=== PATIENT | male | born 1945 | race Caucasian/White ===

== ENCOUNTER → 2018-01-22 13:50 | Outpatient (CLI) | payer MEDICARE, OTHER ==
[2016-08-20 09:11] VITALS: BMI 30.6
[~2018-01-22 13:50] MED LIST: ATENOLOL25 MG PO; ATIVAN0.5 MG PO; BAYER CHEWABLE81 MG PO; CINNAMON500 MG PO; COLACE100 MG PO; COUMADIN5 MG PO; DIABETA5 MG PO; FISH OIL 1,0001 CA1 PO; FISH OIL 1,2001 CA1 PO; MS CONTIN15 MG PO; NIASPAN500 MG PO; PERCOCET 10/3251 TA1 PO; PERCOCET 5/3251 TA1 PO; PLAVIX75 MG PO; PRESERVISION AR1 CAP PO; PRILOSEC20 MG PO; ZEGERID 20 MG C1 CAP PO
== END | disposition home or self-care (01) ==
LOC: D.US 13:50
DX: I73.9 Peripheral vascular disease, unspecified (principal)

== ENCOUNTER → 2018-09-22 07:52 | Outpatient (CLI) | payer MEDICARE, OTHER ==
[2016-08-20 09:11] VITALS: BMI 30.6
--- NOTE | ~2018-09-22 | ST ---
PATIENT:GUS NAIK MEDICAL RECORD: [id number] SEX: M LOCATION:[facility] ORDER #: ADMISSION DATE: 09/22/18 AGE OF PATIENT: 73 REFERRING PHYSICIAN: INTERPRETING PHYSICIAN: MICHAEL RON MD DATE OF SERVICE: 09/22/2018 PROCEDURE: Nuclear stress test. INDICATION: Angina, shortness of breath, hypertension, and hyperlipidemia. He was exercised on standard Lexiscan protocol with 33 mCi of sestamibi injected at peak stress, 11 mCi were used previously for rest images. FINDINGS: Gated SPECT reveals a preserved ejection fraction at 64% with good wall motioning and thickening and brightening throughout all segments. SPECT imaging Cardiolite was used as myocardial perfusion agent. There are reversible changes inferiorly and laterally, this includes the basal, mid, apical inferior segments as well as apical lateral, mid lateral, and basal lateral segments. The degree of reversibility is moderate. The amount of myocardium involved is moderate to large. OVERALL IMPRESSION: This is an abnormal nuclear stress test, moderate reversible ischemia throughout a large area of myocardium inferiorly and laterally with a preserved ejection fraction. This does strongly suggest the presence of hemodynamically significant coronary artery disease with ongoing symptomatology. We will proceed with coronary angiography as followup study. TRANSINT:[id number] Voice Confirmation ID: [id number] DOCUMENT ID: [id number] MICHAEL RON MD at 1228 CC: [id number] DICTATION DATE: 09/23/18 1244 VARNISHER APPRENTICE: 09/24/18 0818 DEP CLI 09/22/18 [place] [id number]
== END | disposition home or self-care (01) ==
LOC: D.HCCARDIO 07:52
DX: I25.119 Atherosclerotic heart disease of native coronary artery with unspecified angina pectoris (principal)

== ENCOUNTER 2018-10-02 07:52 | Outpatient (CLI) | payer MEDICARE, OTHER ==
[~2018-10-02] VITALS: Ht 182.9 cm; Wt 95.5 kg
--- NOTE | ~2018-10-02 | HEMODYNAMI ---
PATIENT:GUS NAIK MEDICAL RECORD: [id number] : 45 LOCATION:[facility] ADMISSION DATE: 10/02/18 Generatedon:10/02/201810:47 Patient name: GUS NAIK Patient #: [id number] : 1945 Date of study: 10/02/2018 Page: Of Hemodynamic Procedure Report Patient Data Patient Demographics Procedure consent was obtained First Name: GUS Gender: Male Last Name: HEENA : 1945 [facility] Initial: KATELYN Age: 73 year(s) Patient #: [id number] Race: SSN: [id number] Additional ID: [id number] Contact details Address: [address] [place] [address] State: [place] City: [place] Zip code: [address] Past Medical History Allergies: No known allergies Admission Admission Data Admission Date: 10/02/2018 Admission Time: 7:52 Admit Source: Other Lab Results Lab Result Date: 10/02/2018 Lab Result Time: 0:00 Biochemistry Name Units Result Min Max BUN mg/dl 13 --(--*-)-- 7 18 Creatinine mg/dl 0.8 --(-*--)-- 0.6 1.3 CBC Name Units Result Min Max Hemoglobin g/dl 14.1 --(*---)-- 13.5 17.5 Procedure Procedure Types Cath Procedure Diagnostic Procedure LHC LH w/Coronaries FFR/IVUS Intra-Coronary IVUS Initial Procedure Description Procedure Date Procedure Date: 10/02/2018 Procedure Start Time: 10:34 Procedure End Time: 10:45 Procedure Staff Name Function Antonio Hammer MD Performing Physician Maya Martines RT Monitor Ben Whatley RN Nurse Chago Mace RT Scrub Procedure Data Cath Procedure Fluoroscopy Diagnostic fluoroscopy Total fluoroscopy Time: 1.6 time: 1.6 min min Diagnostic fluoroscopy Total fluoroscopy dose: 608 dose: 608 mGy mGy Contrast Material Contrast Material Type Amount (ml) Isovue 300 70 Entry Location Entry Primary Successful Side Size Upsize Upsize Entry Closure Succes sful Closure Location (Fr) 1 (Fr) 2 (Fr) Remarks Device Remarks Femoral Right 5 Fr 6 Fr Exoseal artery Short Estimated blood loss: 5 ml Diagnostic catheters Device Type Used For End Catheter Placement MULTIPACK Pigtail 5 Fr Procedure catheter MULTIPACK JL 4.0 5Fr Procedure catheter MULTIPACK 3DRC 5Fr Procedure catheter Procedure Complications No complications Procedure Medications Medication Administration Route Dosage Oxygen etCO2 Nasal cannula 2 l/min Lidocaine 2% added to field 20 Heparin Flush Bag added to field 2 bags (1000units/500ml NS) 0.9% NaCl I.V. 100 ml/hr Versed I.V. 1 mg Fentanyl I.V. 50 mcg Versed I.V. 1 mg Fentanyl I.V. 50 mcg Versed I.V. 1 mg Fentanyl I.V. 50 mcg Hemodynamics Rest HGB: 14.1 (g/dl) Heart Rate: 42 (bpm) Snapshots Pre Cath Intra NCS Post Cath Vital Signs Time Heart Resp SPO2 etCO2 NIBP (mmHg) Rhythm Pain Sedation Rate (ipm) (%) (mmHg) Status Level (bpm) 10:24:38 40 18 99 34.3 123/62(88) SB 0 (11) 10(A) , No pain 10:28:50 47 17 95 33.6 114/65(89) SB 0 (11) 10(A) , No pain 10:32:58 46 15 94 0 117/60(95) SB 0 (11) 10(A) , No pain 10:37:08 48 15 97 0 120/59(96) SB 0 (11) 9(A) , No pain 10:41:18 52 14 99 30.6 134/65(101) SB 0 (11) 9(A) , No pain 10:45:34 49 14 96 0 121/64(94) SB 0 (11) 10(A) , No pain Medications Time Medication Route Dose Verified Delivered Reason Notes Eff ectiveness by by 10:24:05 Oxygen etCO2 2 Antonio Contreras used for Nasal l/min Harman Whatley physical therapy instructor cannula 10:24:11 Lidocaine 2% added 20ml Antonio Alvarez for local to vial Harman Hammer MD anesthetic field 10:24:17 Heparin Flush added 2 Antonio Antonio used for Bag to bags Harman Hammer MD procedure (1000units/500ml field NS) 10:24:25 0.9% NaCl I.V. 100 Antonio Contreras Per ml/hr Harman Whatley RN physician 10:32:30 Versed I.V. 1 mg Antonio Contreras for Harman Whatley RN sedation 10:32:36 Fentanyl I.V. 50 Antonio Maradiagaie for mcg Harman Whatley RN sedation 10:36:42 Versed I.V. 1 mg Antonio Contreras for Hamran Whatley RN sedation 10:36:47 Fentanyl I.V. 50 Antonio Maradiagaie for wiliam Whatley RN sedation 10:41:14 Versed I.V. 1 mg Antonio Maradiagaie for Harman Whatley RN sedation 10:41:17 Fentanyl I.V. 50 Antonio Maradiagaie for mcg Harman Whatley RN sedation Procedure Log Time Note 10:16:47 H&P Date Dictated: 10/08/2018 Within 30 days and on chart., H&P Addendum completed by physician on day of procedure. (MUST COMPLETE FOR ALL OUTPATIENTS). 10:04:40 Admit Source: Other 10:05:01 Diagnostic Cath status Elective 10:05:03 Ben Whatley RN sent for patient. Start room use. 10:05:04 Time tracking: Regular hours (M-F 7:00 - 5:00) 10:05:10 Plan of Care:Hemodynamics will remain stable., Cardiac rhythm will remain stable., Comfort level will be maintained., Respiratory function will remain adequate., Patient/ family verbilizes understanding of procedure., Procedure tolerated without complication., Recovers from procedure without complications.. 10:09:43 Lab Result : BUN 13 mg/dl 10::43 Lab Result : Hemoglobin 14.1 g/dl 10::43 Lab Result : Creatinine 0.8 mg/dl 10:09:47 Lab results completed and on chart. 10:16:21 Patient received from Pre/Post Procedure Room to CCL 2 Alert and oriented. Tansferred to table in Supine position. 10:16:24 Warm blankets applied, and noris hugger turned on for patient comfort. 10:16:25 Correct patient and procedure confirmed by team. 10:16:25 ECG and BP/O2 sat monitors applied to patient. 10:16:27 Signed procedure consent form obtained from patient. 10:23:20 Vital chart was started 10:23:21 Baseline sample Acquired. 10:23:33 Rhythm: sinus bradycardia 10::35 Full Disclosure recording started 10:23:35 Pre-procedure instructions explained to patient. 10:23:36 Pre-op teaching completed and patient verbalized understanding. 10:23:37 Family in patients room. 10:23:38 Patient NPO since Midnight. 10:23:44 Patient allergic to No known allergies 10:23:47 Is patient on blood thinner?Yes 10:23:55 PRE LOADED PLAVIX 10:23:56 Patient diabetic? Yes. 10:23:57 If diabetic: On Metformin? Yes 10:23:59 If on Metformin: Last Dose? 09/30/2018 10:24:02 Previous problem with sedation/anesthesia? No ? 10:24:03 Snore? Yes 10:24:04 Sleep apnea? Yes 10:24:05 Oxygen 2 l/min etCO2 Nasal cannula was administered by Ben Whatley RN; used for procedure; 10:24:05 Deviated septum? No 10:24:06 Opens mouth fully? Yes 10:24:07 Sticks out tongue? Yes 10:24:09 Airway obstruction? No ? 10:24:10 Dentures? No ? 10:24:11 Lidocaine 2% 20ml vial added to field was administered by Antonio Hammer MD; for local anesthetic; 10:24:13 Pre procedure: right dorsailis pedis pulse 2+ Normal; easily identifiable; not easily obliterated 10:24:15 Patient pain scale 0/10 ?. 10:24:17 Heparin Flush Bag (1000units/500ml NS) 2 bags added to field was administered by Antonio Hammer MD; used for procedure; 10:24:20 IV patent on arrival in left hand with 0.9% NaCl at [facility]. 10:24:24 Right groin area was prepped with chlora-prep and draped in sterile fashion 10:24:25 0.9% NaCl 100 ml/hr I.V. was administered by Ben Whatley RN; Per physician; 10:24:25 Alarms reviewed by R. N. 10:24:25 Sharps counted by scrub and verified by R.N. 10:24:29 Use device set Femoral Dx 10:24:30 ACIST Syringe (74537) opened to sterile field. 10:24:30 Bag Decanter (2002S) opened to sterile field. 10:24:32 ACIST Hand Control (77395) opened to sterile field. 10:24:32 ACIST Manifold (30917) opened to sterile field. 10:24:33 Tegaderm 4 x 4 (1626W) opened to sterile field. 10:24:34 Medline Cath Pack ([id number]) opened to sterile field. 10:24:34 DIAGNOSTIC WIRE .035 260cm J wire (535841) opened to sterile field. 10:24:36 DIAGNOSTIC Multipack 5Fr catheter set (NS0640) opened to sterile field. 10:24:37 SHEATH 5FR Eaton (PMX703) opened to sterile field. 10:31:59 --------ALL STOP TIME OUT------ 10:32:00 Final Timeout: patient, procedure, and site verified with staff and physician. All members of the team are in agreement. 10:32:01 Right groin site verified by team. 10:32:03 Physical assessment completed. ASA score P 2 - A patient with mild systemic disease as per Antonio Hammer MD. 10:32:06 Sedation plan: IV Moderate Sedation Medication:Versed, Fentanyl 10:32:30 Versed 1 mg I.V. was administered by Ben Whatley RN; for sedation; 10:32:36 Fentanyl 50 mcg I.V. was administered by Ben Whatley RN; for sedation; 10:34:14 Procedure started. 10:34:15 Zero performed for pressure channel P1 10:34:40 Local anesthetic to right femoral artery with Lidocaine 2% by Antonio Hammer MD.INITIAL ACCESS ONLY 10:35:07 A 5 Fr sheath was inserted into the Right Femoral artery 10:35:27 A MULTIPACK Pigtail 5 Fr catheter was advanced over the wire and used for Procedure. 10:35:50 LV gram done using MCLEAN 10:35:52 Injector settings: Ml/sec: 10, Volume: 20, 10:36:08 EF : 55 % 10:36:24 Catheter removed. 10:36:28 A MULTIPACK JL 4.0 5Fr catheter was advanced over the wire and used for Procedure. 10:36:42 Versed 1 mg I.V. was administered by Ben Whatley RN; for sedation; 10:36:47 Fentanyl 50 mcg I.V. was administered by Ben Whatley RN; for sedation; 10:37:20 LCA angiography performed. 10:37:45 Catheter removed. 10:37:49 A MULTIPACK 3DRC 5Fr catheter was advanced over the wire and used for Procedure. 10:38:41 RCA angiography performed. 10:38:43 Catheter removed. 10:39:36 SHEATH 6FR Eaton (SUN566) opened to sterile field. 10:39:37 INFLATOR Merit BasixCompak (WQ7626) opened to sterile field. 10:39:37 CHOICE PT Extra Support 182cm wire ([id number]) opened to sterile field. 10:39:42 [place] IVUS Catheter (69415Y) opened to sterile field. 10:39:53 GUIDE 6FR 3DRC catheter ([id number]) opened to sterile field. 10:40:02 Sheath upsized to a 6 Fr Short. 10:40:15 6 Fr 3DRC guide catheter was inserted over the wire 10:41:02 CHOICE ES 182 wire advanced. 10:41:14 Versed 1 mg I.V. was administered by Ben Whatley RN; for sedation; 10:41:17 Fentanyl 50 mcg I.V. was administered by Ben Whatley RN; for sedation; 10:41:36 Wire advanced across lesion. 10:42:22 IVUS catheter advanced over wire. 10:42:25 IVUS pass to RCA lesion performed. 10:42:25 IVUS catheter removed over wire. 10:42:35 Wire removed. 10:42:36 Guide catheter removed. 10:42:43 EXOSEAL 6Fr (EX600) opened to sterile field. 10:43:06 Sheath removed intact; hemostasis achieved with Exoseal to the Right Femoral artery. 10:43:08 Procedure ended.(Physican Out) 10:43:19 Fluoroscopy time 01.60 minutes. 10:43:22 Flurop Dose total: 608 10:43:22 Fluoroscopy dose: 608 mGy 10:43:25 Contrast amount:Isovue 300 70ml. 10:43:29 Sharps counted by scrub and verified by R.N. 10:43:32 Post-op/insertion site Right Femoral artery dressed using a 4 x 4 and Tegaderm. 10:43:37 Post right femoral artery:stable, soft, clean and dry 10:43:41 Post-procedure physical assessment completed. ASA score P 2 - A patient with mild systemic disease as per Antonio Hammer MD. 10:43:46 Post procedure rhythm: sinus bradycardia 10:43:54 Estimated blood loss: 5 ml 10:43:56 Post procedure instruction explained to patient.Patient verbalizes understanding. 10:43:57 Patient needs reinforcement of post procedure teaching. 10:44:45 Procedure type changed to Cath procedure, Diagnostic procedure, LHC, LHC w/Coronaries, FFR/IVUS, Intra-Coronary IVUS Initial 10:45:15 Procedure and supply charges have been captured, reviewed, submitted and are correct. 10:45:18 Procedure Complication : No complications 10:45:20 Vital chart was stopped 10:45:20 See physician's report for complete and final results. 10:45:42 Report given to Pre/Post Procedure Room. 10:45:45 Patient transfered to Pre/Post Procedure Room with Bed. 10:45:46 Procedure ended. 10:45:46 Full Disclosure recording stopped 10:45:50 End room use (Document Last) Device Usage Item Name Manufacture Quantity Catalog Number Hospital Part Current Minim al Lot# / Charge Number Stock Stock Serial# Code ACIST Acist 1 57503 240533 722586 037339 20 Syringe Medical (08910) Systems Inc Bag Microtek 1 278303 00467 494296 5 Decanter Medical Inc. () ACIST Hand Acist 1 69325 940448 193500 441065 5 Control Medical (81879) Systems Inc ACIST Acist 1 49884 859230 682650 312089 5 Manifold Medical (42857) Systems Inc Tegaderm 4 3M 1 1626W 464313 775133 468675 5 x 4 (1626W) Medline Medline 1 [id number] 556980 87526 134178 5 Cath Pack ([id number]) DIAGNOSTIC [facility] [place] 1 262420 744260 006226 961853 30 WIRE .035 260cm J wire (635477) DIAGNOSTIC Cardinal 1 OT2119 915225 78093 982659 30 [facility] 5Fr catheter set (HZ5840) SHEATH 5FR Terumo 1 FXD387 579585 874430 216843 5 Eaton (UDN725) MULTIPACK Cardinal 1 690178 5 Pigtail 5 Health Fr catheter MULTIPACK Cardinal 1 972855 5 JL 4.0 5Fr Health catheter MULTIPACK Cardinal 1 654592 5 3DRC 5Fr Health catheter SHEATH 6FR Terumo 1 YZC870 565400 481280 022087 40 Eaton (GIU434) INFLATOR Merit 1 IZ7559 341850 328490 866774 15 [facility] Medical BasixCompak (AM2071) CHOICE PT Superior 1 [id number] 348296 941606 204345 5 Extra Scientific Support 182cm wire ([id number]) [place] 1 70331I 435131 969533 213663 8 [place] IVUS Catheter (59308G) GUIDE 6FR Medtronic 1 [id number] 581715 147226 742913 1 3DRC catheter (DE52CSN) EXOSEAL 6Fr Cardinal 1 EX600 614027 305288 534576 10 (EX600) Health Signature Audit [place] Stage Time Signature Unsigned Intra-Procedure 10/02/2018 Maya Martines 10:47:48 AM RT(R) Signatures Monitor : Maya Martines Signature : RT Date : Time : [place] [id number] [place] [address]
[2018-10-02] MEDS ORDERED: PRAVACHOL20 MG PO (08:15)
[2018-10-02] MEDS ORDERED: JARDIANCE10 MG PO (08:15)
[2018-10-02] MEDS ORDERED: GLUCOPHAGE500 MG PO (08:16)
[2018-10-02] MEDS ORDERED: NEURONTIN 300300 MG PO (08:16)
[2018-10-02] MEDS ORDERED: CO Q-10400 MG PO (08:17)
[2018-10-02 08:24] VITALS: BP 121/70; Ht 182.9 cm; Wt 95.5 kg
[2018-10-02 08:25] LABS: BASOPHILS 0.4 % (0-2); EOSINOPHILS 2.4 % (0-7); HEMATOCRIT 40.9 % (42.0-54.0); HEMOGLOBIN 14.1 g/dL (13.5-17.5); IMMATURE GRANULOCYTES 0.3 % (0-5); LYMPHOCYTES 24.5 % (15-50); MCH 32.3 pg (26.0-34.0); MCHC 34.5 g/dL (31.0-37.0); MCV 93.6 fL (80.0-100.0); MEAN PLATELET VOLUME 10.5 fL (7.4-10.4); NEUTROPHILS 65.4 % (40-80); PLATELET COUNT 283 10x3/uL (130-400); RBC 4.37 10x6/uL (4.20-6.10); RDW 13.9 % (11.5-14.5)
[2018-10-02 08:32] LABS: CALC OSMOLALITY 279 mosm/kg (275-300); CARBON DIOXIDE 27.1 mmol/L (21.0-32.0); CHLORIDE - SERUM 103 mmol/L (98-107); CREATININE - SERUM 0.8 mg/dL (0.6-1.3); GLUCOSE 136 mg/dL (74-106); POTASSIUM - SERUM 3.5 mmol/L (3.5-5.1); SODIUM 139 mmol/L (136-145); UREA NITROGEN 13 mg/dL (7-18); eGFR NON AFRICAN AMERICAN > 90 mL/min (90-120)
--- NOTE | 2018-10-02 11:30 | NUR ---
PT DENIES ANY C/O. DRESSING TO RIGHT GROIN IS CDI, AREA IS SOFT AND NOTENDER. PEDAL PULSES PALPABLE. SINUS JOSE RAUL AT 48, BP IS 104/42 ANNE MARIE PO FLUIDS WITH NO C/O NAUSEA. HOB IS FLAT, AT BEDSIDE. CALL LIGHT IN REACH.
--- NOTE | 2018-10-02 12:07 | NUR ---
DRESSING CDI RIGHT GROIN, AREA IS SOFT AND NONTENDER. PEDAL PULSES PALPABLE. HOB IS FLAT, SINUS JOSE RAUL WTIH NO C/O CHEST PAINS. AT BEDSIDE. CALL LIGHT IN REACH.
--- NOTE | 2018-10-02 12:35 | NUR ---
HOB FLAT, DRESSING CDI, VSS. SINUS JOSE RAUL, DENIES ANY C/O CHEST PAIN.
--- NOTE | 2018-10-02 13:05 | NUR ---
HOB ELEVATED 30 DEGREES, SANDWICH SERVED. DRESSING IS CDI TO RIGHT GROIN, AREA IS SOFT AND NONTENDER. PEDAL PULSES PALPABLE.
--- NOTE | 2018-10-02 13:32 | NUR ---
1315 HOB FULLY ELEVATED, DRESSING TO RIGHT GROIN IS CDI, AREA IS SOFT AND NONTENDER. PEDAL PULSES PALPABLE. PT IS ALERT AND DENIES ANY C/O. HAS ANNE MARIE SANDWICH WITH NO C/O NAUSEA. 1330 DRESSING CDI, PEDAL PULSES PALPABLE. IV DC'D WITH CATH INTACT AND PT IS DRESSING FOR DC TO HOME WITH ASSIST.
--- NOTE | 2018-10-02 13:56 | NUR ---
1340N DC INSTRUCTIONS HAVE BEEN REVIEWED WITH PT AND WHO VERBALIZES UNDERSTANDING. PT ESCORTED TO PRIVATE AUTO VIA WC BY NURSE WITH DRIVING HIM HOME. PT DENIES ANY C/O UPON DC, HAS ALL PERSONAL BELONGINGS AND DC INSTRUCTIONS.
--- NOTE | 2018-10-08 14:56 | OP ---
PATIENT NAME: GUS NAIK MEDICAL RECORD: [id number] :45 LOCATION:D[facility] ADMISSION DATE: SURGEON: MICHAEL RON MD DATE OF OPERATION: 10/02/2018 PROCEDURES: 1. Left heart catheterization. 2. Selective coronary angiography. 3. Left ventriculogram. 4. Intravascular ultrasound RCA. PROCEDURE IN DETAIL: After informed consent was obtained and after detailed description of risks, benefits as well as alternative therapies, the patient elected to proceed with angiogram and heart catheterization. The right femoral area was prepped and draped in normal sterile fashion. Right femoral artery was cannulated via modified Seldinger technique with placement of 6-Yi sheath. All catheters exchanged through this sheath. FINDINGS: The left ventriculogram was performed in standard 30-degree MCLEAN view, reveals good cardiac wall motion throughout all segments. Overall ejection fraction estimated 60%. SELECTIVE CORONARY ANGIOGRAPHY: 1. Left main is with no significant angiographic disease. 2. Left anterior descending has previously placed stent. This is widely patent with no significant restenosis. No disease elsewise throughout the LAD or its branches. 3. The left circumflex has mild irregularities, but no flow-limiting stenosis. 4. The right coronary has previously placed stent. This is widely patent with no significant restenosis. No disease elsewise confirmed by intravascular ultrasound. OVERALL IMPRESSION: No new coronary artery disease is present, wide patency of the previously placed stents. Continue medical management of the coronary artery disease and cardiac risk factors. TRANSINT:[id number] Voice Confirmation ID: [id number] DOCUMENT ID: [id number] MICHAEL RON MD at 1456 CC: [id number] DICTATION DATE: 10/02/18 1046 BLADE BALANCER: 10/02/18 1318 DEP CLI 10/02/18 [place] [id number]
== END 2018-10-02 13:40 | disposition home or self-care (01) ==
LOC: D.CATH 07:52
PROVIDERS: Internal Medicine Interventional Cardiology
DX: I25.119 Atherosclerotic heart disease of native coronary artery with unspecified angina pectoris (principal); Z95.5 Presence of coronary angioplasty implant and graft; Z01.812 Encounter for preprocedural laboratory examination